=== PATIENT | female | born 2000 | race American Indian/Alaskan Native ===

== ENCOUNTER 2019-05-12 00:57 | Emergency (ER) | payer SELFPAY ==
[2019-05-12] MEDS ORDERED: ACETAMINOPHEN 500 MG TAB PO ONE (01:34)
[2019-05-12] MEDS ORDERED: LORazepam 1 MG TAB PO ONE (01:34)
[2019-05-12 01:49] LABS: Basophils % (Auto) 0.5 % (0.0-1.8); Eosinophils # (Auto) 0.2 K/mm3 (0.0-0.4); Hemoglobin 13.9 gm/dl (10.1-14.3); Lymphocytes # (Auto) 3.3 K/mm3 (1.2-5.4); Lymphocytes % (Auto) 43.4 % (13.4-35.0); Mean Corpuscular HGB Conc 34 % (30-34); Mean Corpuscular Volume 87 fl (79-97); Monocytes # (Auto) 0.5 K/mm3 (0.0-0.8); Monocytes % (Auto) 6.4 % (0.0-7.3); Platelet Count 233 K/mm3 (140-440); Red Blood Count 4.71 M/mm3 (3.65-5.03); Red Cell Distribution Width 13.2 % (13.2-15.2)
[2019-05-12 02:04] LABS: Alanine Aminotransferase 15 units/L (7-56); Albumin 4.9 g/dL (3.9-5); BUN/Creatinine Ratio 16; Blood Urea Nitrogen 11 mg/dL (7-17); Calcium 9.3 mg/dL (8.4-10.2); Hemolysis Index 20
--- NOTE | 2019-05-12 02:18 | Emergency Department Report ---
ED Female HPI - General Chief complaint: Vaginal Bleeding Stated complaint: vaginal bleeding Source: patient, family Mode of arrival: Ambulatory Limitations: No Limitations - History of Present Illness Initial comments: Patient is a nulliparous 18-year-old white female with no past medical history presents to the ED with complaint of acute onset persistent severe pelvic pain that radiates to the left lower quadrant. With heavy vaginal bleeding after having sexual intercourse about one hour ago. Patient states that she was actively having sexual intercourse when she suddenly felt sharp pain in her pelvic area followed by heavy vaginal bleeding about one hour ago. Patient denies use of any sex toys or any abnormal sexual practices, low back pain, nausea, vomiting, dizziness, diarrhea, vaginal discharge, urinary frequency and urgency, dysuria, fever, chills, change in vision, dyspareunia traumatic injury or chest pain or shortness of breath. MD Complaint: vaginal bleeding, pelvic pain -: Sudden, hour(s) (1) Location: suprapubic Radiation: non-radiating Severity: severe Severity scale (0 -10): 8 Quality: sharp, stabbing, aching Consistency: constant Improves with: none Worsens with: intercourse, movement Are you Now?: No Last Menstrual Period: 05/02/19 EDC: 02/06/20 Associated Symptoms: denies other symptoms, vaginal bleeding, abdominal pain (Suprapubic, LLQ area). denies: vaginal discharge, nausea/vomiting, fever/chills, headaches, loss of appetite, dysuria, hematuria, rash, seizure, shortness of breath, syncope, weakness, other - Related Data Sexually active: Yes : 0 Para: 0 A: 0 Previous Rx's Medication Instructions Recorded Last Taken Type Ibuprofen [Motrin] 800 mg PO Q8HR PRN #20 tablet 05/12/19 Unknown Rx Ondansetron [Zofran Odt] 4 mg PO Q6HR PRN #12 tab.rapdis 05/12/19 Unknown Rx Allergies Allergy/AdvReac Type Severity Reaction Status Date / Time erythromycin base Allergy Swelling Verified 05/12/19 01:13 tetanus and diphtheria Allergy Swelling Verified 05/12/19 01:13 toxoids ED Review of Systems ROS: Stated complaint: vaginal bleeding Other details as noted in HPI Constitutional: denies: chills, fever Eyes: denies: eye pain, eye discharge, vision change ENT: denies: ear pain, throat pain Respiratory: denies: cough, shortness of breath, wheezing Cardiovascular: denies: chest pain, palpitations Endocrine: no symptoms reported Gastrointestinal: abdominal pain (suprapubic and LLQ pain). denies: nausea, vomiting, diarrhea, hematemesis Genitourinary: hematuria, abnormal menses (heavy vaginal bleeding), other (pelvic pain). denies: urgency, dysuria, frequency, discharge Musculoskeletal: denies: back pain, joint swelling, arthralgia Skin: denies: rash, lesions Neurological: denies: headache, weakness, paresthesias Psychiatric: denies: anxiety, depression Hematological/Lymphatic: denies: easy bleeding, easy bruising ED Past Medical Hx - Past Medical History Previous Medical History?: Yes Hx Asthma: Yes - Surgical History Past Surgical History?: Yes Additional Surgical History: T&A removed - Social History Smoking Status: Never Smoker Substance Use Type: None - Medications Home Medications: Home Medications Medication Instructions Recorded Confirmed Last Taken Type Ibuprofen [Motrin] 800 mg PO Q8HR PRN #20 tablet 05/12/19 Unknown Rx Ondansetron [Zofran Odt] 4 mg PO Q6HR PRN #12 tab.rapdis 05/12/19 Unknown Rx ED Physical Exam - General Limitations: No Limitations General appearance: alert, in no apparent distress - Head Head exam: Present: atraumatic, normocephalic, normal inspection - Eye Eye exam: Present: normal appearance, PERRL, EOMI - ENT ENT exam: Present: normal exam, normal orophraynx, mucous membranes moist, TM's normal bilaterally, normal external ear exam - Neck Neck exam: Present: normal inspection, full ROM - Respiratory Respiratory exam: Present: normal lung sounds bilaterally. Absent: respiratory distress, wheezes, rales, rhonchi, chest wall tenderness, accessory muscle use, decreased breath sounds, prolonged expiratory - Cardiovascular Cardiovascular Exam: Present: normal rhythm, tachycardia, normal heart sounds. Absent: systolic murmur, diastolic murmur, rubs, gallop - GI/Abdominal GI/Abdominal exam: Present: soft, tenderness (suprapubic, LLQ area), normal bowel sounds. Absent: guarding, rebound, hyperactive bowel sounds, hypoactive bowel sounds, organomegaly - Bi-manual exam: Present: other (Deferred, patient preference) - Extremities Exam Extremities exam: Present: normal inspection, full ROM, normal capillary refill - Back Exam Back exam: Present: normal inspection, full ROM. Absent: tenderness, CVA tenderness (R), CVA tenderness (L), muscle spasm, paraspinal tenderness - Neurological Exam Neurological exam: Present: alert, oriented X3, CN II-XII intact, normal gait, reflexes normal - Psychiatric Psychiatric exam: Present: normal affect, normal mood - Skin Skin exam: Present: warm, dry, intact, normal color. Absent: rash ED Course Vital Signs 05/12/19 01:01 Temperature 98.6 F Pulse Rate 107 H Respiratory 18 Rate Blood Pressure 140/80 O2 Sat by Pulse 98 Oximetry - Reevaluation(s) Reevaluation #1: 05/12/19 02:22 This is a 18-year-old female who presented to the ED with heavy vaginal bleeding and pelvic pain after sexual intercourse but in no ago. In the ED, patient is alert and oriented 3 and is not in distress, but appears to be in pain and crying during the physical exam. Lab test results were reviewed and are all unremarkable and nonactionable. Pelvic ultrasound was also performed. Patient was treated for pain in the ED. On reevaluation, patient's pain is well- controlled with medications. Lab test results were reviewed and are all unremarkable and nonactionable. The transvaginal and pelvic ultrasounds showed normal right ovary which measures 3.2 x 3.1 x 2.6 cm. No significant ovarian cyst or mass. Normal color Doppler blood flow. The left ovary also normal and measures 3.3 x 2.1 x 2.1 cm. No significant ovarian cyst or mass. Normal color Doppler blood flow. There is no abnormality identified during this procedure. Patient was discharged home on pain medications and advised to maintain a complete pelvic rest, and to follow-up with the [facility] physician in 5-7 days for reevaluation. Patient was also advised to return to the ED immediately if symptoms get worse. 05/12/19 05:31 ED Medical Decision Making - Lab Data Result diagrams: 05/12/19 01:16 05/12/19 01:29 - Radiology Data Radiology results: report reviewed, image reviewed Findings [address] [address] Ultrasound Report Signed Patient: PATRICE GREEN#: [id number] : 2000 Acct:[id number] Age/Sex: 18 / F ADM Date: 05/12/19 Loc: ED Attending Dr: Ordering Physician: JEFF MILLER Date of Service: 05/12/19 Procedure(s): US transvaginal Accession Number(s): [id number] cc: JEFF MILLER ULTRASOUND PELVIS INDICATION / CLINICAL INFORMATION: Pelvic pain; heavy vaginal bleeding. TECHNIQUE: Transabdominal and Transvaginal. Duplex Color Doppler used: Yes. COMPARISON: None available FINDINGS: UTERUS: Present. - Appearance (if present): No significant abnormality. - Size in cm (if present): 6.3 x 3.6 x 5.1. - Endometrial Complex (if present): No significant abnormality.. Thickness in cm (if measured) = 0.2 - Mass lesions: None. - Additional findings: None. RIGHT ADNEXA: The right ovary measures 3.2 x 3.1 x 2.6 cm. No significant ovarian cyst or mass. Normal color Doppler blood flow. LEFT ADNEXA: The left ovary measures 3.3 x 2.1 x 2.1 cm. No significant ovarian cyst or mass. Normal color Doppler blood flow. URINARY BLADDER: No significant abnormality. FREE FLUID: None. ADDITIONAL FINDINGS: None. IMPRESSION: 1. No significant abnormality. Signer Name: Mariam Bravo MD Signed: 05/12/2019 2:56 AM Workstation Name: [id number] Transcribed By: [facility] Dictated By: Mariam Bravo MD Electronically Authenticated By: Mariam Bravo MD Signed Date/Time: 05/12/19255 DD/ 025 - Medical Decision Making This is a 18-year-old female who presented to the ED with heavy vaginal bleeding and pelvic pain after sexual intercourse but in no ago. In the ED, patient is alert and oriented 3 and is not in distress, but appears to be in pain and crying during the physical exam. Lab test results were reviewed and are all unremarkable and nonactionable. Pelvic ultrasound was also performed. Patient was treated for pain in the ED. On reevaluation, patient's pain is well- controlled with medications. Lab test results were reviewed and are all unremarkable and nonactionable. The transvaginal and pelvic ultrasounds showed normal right ovary which measures 3.2 x 3.1 x 2.6 cm. No significant ovarian cyst or mass. Normal color Doppler blood flow. The left ovary also normal and measures 3.3 x 2.1 x 2.1 cm. No significant ovarian cyst or mass. Normal color Doppler blood flow. There is no abnormality identified during this procedure. Patient was discharged home on pain medications and advised to maintain a complete pelvic rest, and to follow-up with the [facility] physician in 5-7 days for reevaluation. Patient was also advised to return to the ED immediately if symptoms get worse. - Differential Diagnosis Acute pelvic pain; Traumatic vaginal bleeding Critical care attestation.: If time is entered above; I have spent that time in minutes in the direct care of this critically ill patient, excluding procedure time. ED Disposition Clinical Impression: Dysfunctional uterine hemorrhage Abdominal pain Qualifiers: Abdominal location: lower abdomen, unspecified Qualified Code(s): R10.30 - Lower abdominal pain, unspecified Vaginal trauma Qualifiers: Encounter type: initial encounter Qualified Code(s): S39.93XA - Unspecified injury of pelvis, initial encounter Disposition: TO HOME OR SELFCARE Is pt being admited?: No Does the pt Need Aspirin: No Condition: Stable Instructions: Dysfunctional Uterine Bleeding (ED), Acute Abdominal Pain (ED) Additional Instructions: Maintain a complete pelvic rest and follow-up with your [facility] physician in 5-7 days for reevaluation. Take medication with food, drink plenty of fluids. Return to the ED immediately if symptoms get worse. Prescriptions: Ibuprofen [Motrin] 800 mg PO Q8HR PRN #20 tablet PRN Reason: Pain , Severe (7-10) Ondansetron [Zofran Odt] 4 mg PO Q6HR PRN #12 tab.rapdis PRN Reason: Nausea Referrals: PRIMARY CARE,MD [Primary Care Provider] - 3-5 Days Time of Disposition: 02:24 Print Language: SPANISH
--- NOTE | 2019-05-12 03:01 | Ultrasound Report ---
ULTRASOUND PELVIS INDICATION / CLINICAL INFORMATION: Pelvic pain; heavy vaginal bleeding. TECHNIQUE: Transabdominal and Transvaginal. Duplex Color Doppler used: Yes. COMPARISON: None available FINDINGS: UTERUS: Present. - Appearance (if present): No significant abnormality. - Size in cm (if present): 6.3 x 3.6 x 5.1. - Endometrial Complex (if present): No significant abnormality.. Thickness in cm (if measured) = 0.2 - Mass lesions: None. - Additional findings: None. RIGHT ADNEXA: The right ovary measures 3.2 x 3.1 x 2.6 cm. No significant ovarian cyst or mass. Melba l color Doppler blood flow. LEFT ADNEXA: The left ovary measures 3.3 x 2.1 x 2.1 cm. No significant ovarian cyst or mass. Normal color Doppler blood flow. URINARY BLADDER: No significant abnormality. FREE FLUID: None. ADDITIONAL FINDINGS: None. IMPRESSION: 1. No significant abnormality. Signer Name: Mariam Bravo MD Signed: 05/12/2019 2:56 AM Workstation Name: [id number]
[2019-05-12 05:08] LABS: Bacteria,Urine 1+ /HPF (Negative); Bilirubin,Urine NEG (Negative); Blood,Urine MOD (Negative); Color,Urine Straw (Yellow); Mucus,Urine FEW /HPF; Protein,Urine <15 mg/dL mg/dL (Negative); Urobilinogen,Urine < 2.0 mg/dL (<2.0); WBC,Urine < 1.0 /HPF (0.0-6.0)
[2019-05-12 05:44] LABS: HCG Qualitative,Urine Negative (Negative)
[2019-05-12 06:00] VITALS: BP 103/54
== END 2019-05-12 06:00 | disposition home or self-care (01) ==
LOC: ED 00:57
DX: S39.93XA Unspecified injury of pelvis, initial encounter (principal); N93.8 Other specified abnormal uterine and vaginal bleeding; R10.32 Left lower quadrant pain; J45.909 Unspecified asthma, uncomplicated; X58.XXXA Exposure to other specified factors, initial encounter; Y93.89 Activity, other specified; Y92.89 Other specified places as the place of occurrence of the external cause; Y99.8 Other external cause status
CPT/HCPCS: 36415; 76830; 76856; 80053; 81001; 81025; 85025